=== PATIENT | male | born 1975 ===

== ENCOUNTER 2018-11-08 18:17 | Emergency (ER) | payer OTHER ==
[~2018-11-08] VITALS: Ht 170.2 cm; Wt 97.5 kg
[2018-11-08] MEDS ORDERED: DOLOGEN CAPLET1 EACH PO (23:39)
[2018-11-08] MEDS ORDERED: ZITHROMAX500 MG PO (23:39)
[2018-11-08] MEDS ORDERED: ANALPRAM HC 2.530 GM RECTAL (23:39)
== END 2018-11-08 23:56 | disposition home or self-care (01) ==
LOC: ER 18:17
DX: B34.8 Other viral infections of unspecified site (principal); K64.8 Other hemorrhoids

== ENCOUNTER 2024-06-04 05:40 | Day surgery (SDC) | payer OTHER ==
[2024-06-03 09:58] VITALS: BP 115/72
[2024-06-03 10:15] LABS: HEMATOCRIT 44.8 % (39.0-48.0); HEMOGLOBIN 15.2 g/dL (13-16.00); MEAN CELL VOLUME 85.1 fL (80.0-100.00); MEAN CORPUSCULAR HEMOGLOBIN 28.9 pg (27.00-32.0); MEAN CORPUSCULAR HGB CONC 33.9 g/dl (32.0-36.0); PLATELET COUNT 249 K/uL (150-450); RED BLOOD COUNT 5.27 M/uL (4.00-6.00); RED CELL DISTRIBUTION WIDTH 12.6 % (11.5-14.5)
[2024-06-03 10:38] LABS: PH,URINE 5.5 (5.0-8.0); URINE APPEARANCE Clear; URINE BILIRRUBIN Negative (NEGATIVE); URINE BLOOD Negative; URINE COLOR Yellow; URINE GLUCOSE Negative (NEGATIVE); URINE KETONE Negative (NEGATIVE); URINE LEUKOCYTE Negative; URINE NITRATE Negative; URINE PROTEIN Negative (NEGATIVE); URINE UROBILINOGEN 0.2 E.U./dl
[2024-06-03 10:40] LABS: INR 0.98; PARTIAL THROMBOPLASTIN TIME 26.2 SECONDS (22.0-34.0); PROTHROMBIN TIME 10.7 SECONDS (9.0-11.5)
[2024-06-03 10:41] LABS: URINE BACTERIA 24.4 uL (0.0-1933); URINE WBC 2.6 uL (0.0-23.2)
[2024-06-03 10:52] LABS: URINE CAST 0.14 uL (0.0-1.40); URINE EPITHELIAL CELLS 0.6 uL (0.0-38.8)
[2024-06-03 11:20] LABS: ALBUMIN 4.2 gm/dL (3.4-5.0); BILIRUBIN TOTAL 0.96 mg/dL (0.3-1.2); CALCIUM 9.8 mg/dL (8.5-10.1); CREATININE SERUM 0.76 mg/dL (0.70-1.30); GFR 109.47; GLOBULINA 3.6 G/DL (2.4-3.5); POTASSIUM 4.6 mEq/L (3.5-5.1); TOTAL PROTEIN 7.8 gm/dL (6.4-8.2)
[~2024-06-04] VITALS: Ht 177.8 cm; Wt 85.7 kg
[~2024-06-04 05:40] MED LIST: ANALPRAM HC 2.530 GM RECTAL; DOLOGEN CAPLET1 EACH PO; IBU600 MG PO; ZITHROMAX500 MG PO
[2024-06-04] MEDS ORDERED: CEFAZOLIN SODIUM 1,000 MG VIAL ONE (13:55)
[2024-06-04] MEDS ORDERED: BUPIVACAINE HCL/MPF 0.5% 30ML VIAL ONE (14:37)
[2024-06-04] MEDS ORDERED: LIDOCAINE HCL 1%/EPINEPHRINE 20ML VIAL IJ ONE (14:38)
[2024-06-04] MEDS ORDERED: LIDOCAINE HCL 1% 20 ML VIAL IJ ONE (15:24)
[2024-06-04] MEDS ORDERED: SUGAMMADEX SODIUM 200 MG/2 ML VIAL IV ONE ×2 (15:58→16:15)
== END 2024-06-04 18:50 | disposition home or self-care (01) ==
LOC: CIR.AMB 05:40
PROVIDERS: ATTEND Student in an Organized Health Care Education/Training Program
DX: K42.9 Umbilical hernia without obstruction or gangrene (principal)